=== PATIENT | male | born 1970 | race Asian ===

== ENCOUNTER 2016-11-06 18:16 | Emergency (ER) | payer OTHER ==
[~2016-11-06] VITALS: Ht 165.1 cm; Wt 72.1 kg
[~2016-11-06 18:16] MED LIST: FLOMAX(MONOGRA0.4 MG PO; MOTRIN 800MG T800 MG PO; PERCOCET 325 MG1 TA2 PO
[2016-11-06 20:25] LABS: ABSOLUTE BASOPHIL COUNT 0 /CUMM (0.0-0.2); ABSOLUTE EOSINOPHIL COUNT 0.2 /CUMM (0.0-0.7); ABSOLUTE GRANULOCYTE CT 3.4 /CUMM (1.4-6.5); ABSOLUTE LYMPH COUNT 1.9 /CUMM (1.2-3.4); ABSOLUTE MONOCYTE COUNT 0.4 /CUMM (0.10-0.60); BASOPHIL % 0.4 % (0.0-2.0); EOSINOPHIL % 3.2 % (0-5); GRANULOCYTE % 58.4 % (42.2-75.2); HEMATOCRIT 48.9 % (42-52); MEAN CORPUSCULAR VOLUME 88.2 FL (80.0-94.0); PLATELET COUNT 346 /CUMM (130-400); RBC DISTRIBUTION WIDTH 12.8 % (11.5-14.5); RED BLOOD CELL CT 5.55 /CUMM (4.70-6.10); WHITE BLOOD CELL COUNT 5.9 /CUMM (4.8-10.8)
--- NOTE | 2016-11-06 21:50 | CT SCAN REPORT ---
EXAMINATION: CT ABDOMEN AND PELVIS WITHOUT CONTRAST CLINICAL INFORMATION: Right upper quadrant/flank pain. COMPARISON: CT from 03/25/2015. TECHNIQUE: Multidetector volumetric imaging was performed from the superior aspect of the liver through the pubic symphysis. Sagittal and coronal reformatted images were obtained on the technologist's workstation. DLP: 276 mGy-cm FINDINGS: LUNG BASES: The visualized lung bases are unremarkable. LIVER, GALLBLADDER, AND BILIARY TREE: The liver is normal in size, shape, and attenuation. No focal hepatic lesion or biliary ductal dilatation is present. The gallbladder is unremarkable with no evidence of radiopaque gallstones, gallbladder wall thickening, or obvious pericholecystic inflammatory changes. PANCREAS: Unremarkable. SPLEEN: Unremarkable. ADRENAL GLANDS: Unremarkable. KIDNEYS AND URETERS: The kidneys are normal in size, shape, and attenuation. No hydronephrosis, hydroureter, or calculi seen. Minimal bilateral perinephric stranding. BLADDER: Unremarkable. GASTROINTESTINAL TRACT: The stomach and small bowel appear unremarkable. No dilated loops of bowel or evidence of obstruction. The patient is likely status post appendectomy with surgical clips seen at the tip of the cecum. Minimal diverticulosis without evidence of diverticulitis. No free air or free fluid. ABDOMINAL WALL: No significant hernia is appreciated. LYMPH NODES: Normal. VASCULAR: Minimal atherosclerotic calcifications. Retroaortic left renal vein. PELVIC VISCERA: The prostate and seminal vesicles are unremarkable. OSSEOUS STRUCTURES: No acute or suspicious osseous abnormality. Mild degenerative changes in the spine. IMPRESSION: No significant abnormality.
[2016-11-06 22:05] VITALS: BP 136/87
--- NOTE | 2016-11-06 22:57 | ED GI/GU/ABDOMINAL COMPLAINT ---
History of Present Illness General Chief Complaint: Abdominal Pain/Flank Pain Stated Complaint: RUQ ABD PAIN SINCE 11/02 Source: patient, family, old records Exam Limitations: no limitations Vital Signs & Intake/Output Vital Signs & Intake/Output Vital Signs Date Time Temp Pulse Resp B/P Pulse O2 O2 Flow FiO2 Ox Delivery Rate 11/06 2208 Room Air 11/06 2204 97.1 84 18 136/87 97 Room Air 11/06 1845 97.6 87 18 154/100 98 Room Air ED Intake and Output 11/07 0000 11/06 1200 Intake Total Output Total Balance Patient 159 lb Weight Allergies Coded Allergies: NO KNOWN ALLERGIES (12/26/11) Reconcile Medications Hyoscyamine Sulfate (Levsin-Sl) 0.125 MG TAB.SUBL 1-2 TAB SL Q4P PRN abdominal pain OXYCODONE HCL/ACETAMINOPHEN (Percocet 5-325 MG Tablet) 325 MG/5 MG TAB 1-2 TAB PO Q4-6 PRN PRN PAIN Tamsulosin Hydrochloride (Flomax) 0.4 MG CAP.ER.24H 1 TAB PO DAILY KIDNEY STONE Tramadol HCl (Ultram) 50 MG TABLET 1-2 TAB PO Q6PRN PRN severe pain Yibuprofen (Motrin 800MG Tab) 800 MG TABLET 1 TAB PO Q8P PRN PAIN Triage Note: PT TO TRIAGE WITH C/O RUQ ABDOMINAL PAIN RADIATING TO R FLANK 11/21 SINCE THURSDAY. PT DENIES N/V/D, LAST BM TODAY WNL.PT DENIES CEST PAIN, URINARY S/S AFEBRILE, VSS. Triage Nurses Notes Reviewed? yes Onset: 4 days Duration: day(s):, constant, changing over time, continues in ED Timing: recent history Quality/Severity: aching, moderate Location: right upper quadrant Radiation: LLQ, RLQ Activities at Onset: none Prior Abdominal Problems: similar symptoms Past Sexual History: Unobtainable at this time Modifying Factors: Worsens With: movement, palpation. Associated Symptoms: abdominal pain HPI: 4 days prior to admission patient complains of right upper quadrant pain described as achy burning radiating to right lower quadrant left lower quadrant occurring intermittently worse with palpation and movement. Currently the pain is limited to the right upper quadrant. He denies fever chills nausea vomiting diarrhea chest pain cough shortness breath headache dysuria rash bleeding. Past History Travel History Traveled to [place] past 21 day No Medical History Any Pertinent Medical History? see below for history Neurological: migraine EENT: NONE Cardiovascular: hyperlipidemia Respiratory: NONE Gastrointestinal: diverticulitis, pancreatitis Hepatic: NONE Renal: nephrolithiasis Musculoskeletal: NONE Psychiatric: NONE Endocrine: diabetes, BORDERLINE Blood Disorders: NONE Cancer(s): NONE COURTROOM CLERK/Reproductive: NONE Surgical History Surgical History: APPY Psychosocial History Who do you live with Patient/Self Services at Home None What is your primary language Cypriot Tobacco Use: Never used Family History Hx Contributory? No Review of Systems Review of Systems Constitutional: Reports: no symptoms. EENTM: Reports: no symptoms. Respiratory: Reports: no symptoms. Cardiovascular: Reports: no symptoms. GI: Reports: see HPI, abdominal pain. Genitourinary: Reports: no symptoms. Musculoskeletal: Reports: no symptoms. Skin: Reports: no symptoms. Neurological/Psychological: Reports: no symptoms. Hematologic/Endocrine: Reports: no symptoms. Immunologic/Allergic: Reports: no symptoms. All Other Systems: Reviewed and Negative Physical Exam Physical Exam General Appearance: well developed/nourished, alert, awake, anxious, mild distress Head: atraumatic, normal appearance Eyes: Bilateral: normal appearance, PERRL, EOMI, normal inspection. Ears, Nose, Throat, Mouth: hearing grossly normal, moist mucous membrane Neck: normal inspection, supple, full range of motion, normal alignment Respiratory: normal breath sounds, chest non-tender, no respiratory distress, quiet respiration, lungs clear Cardiovascular: regular rate/rhythm, normal peripheral pulses, norml femoral pulses equa Peripheral Pulses: 4+ carotid (R), 4+ carotid (L) Gastrointestinal: normal bowel sounds, soft, no organomegaly, tenderness (mild RUQ no [place]) Male Genitals: normal genitalia Back: normal inspection, normal range of motion Extremities: normal range of motion, no ligament instability Neurologic/Psych: no motor/sensory deficits, awake, alert, oriented x 3, normal gait, normal mood/affect, [employer] II-XII nml as tested Skin: intact, normal color, warm/dry Core Measures ACS in differential dx? No Severe Sepsis Present: No Septic Shock Present: No Progress Differential Diagnosis: biliary colic, diverticulitis, gastritis, pancreatitis, ureterolithiasis Plan of Care: Orders Procedure Date/time Status URINALYSIS 11/06 1928 Complete LIPASE 11/06 1928 Complete COMPREHENSIVE METABOLIC PANEL 11/06 1928 Complete CBC WITHOUT DIFFERENTIAL 11/06 1928 Complete Laboratory Tests 11/06/162045: Urine Color YEL, Urine Clarity CLEAR, Urine pH 6.0, Ur Specific [place] 1.010, Urine Protein NEG, Urine Ketones NEG, Urine Nitrite NEG, Urine Bilirubin NEG, Urine Urobilinogen 0.2, Ur Leukocyte Esterase NEG, Ur Microscopic SEDIMENT EXAMINED, Urine RBC 1-3, Urine Hemoglobin SMALL H, Urine Glucose NEG 11/06/162009: Anion Gap 12, Estimated GFR > 60, BUN/Creatinine Ratio 18.2, Glucose 116 H, Calcium 10.7 H, Total Bilirubin 0.5, AST 24, ALT 38, Alkaline Phosphatase 52, Total Protein 8.2, Albumin 4.9, Globulin 3.3, Albumin/Globulin Ratio 1.5, Lipase 111, CBC w Diff NO MAN DIFF REQ, RBC 5.55, MCV 88.2, MCH 30.0, RDW 12.8, MPV 7.0 L, Gran % 58.4, Lymphocytes % 31.9, Monocytes % 6.1, Eosinophils % 3.2, Basophils % 0.4, Absolute Granulocytes 3.4, Absolute Lymphocytes 1.9, Absolute Monocytes 0.4, Absolute Eosinophils 0.2, Absolute Basophils 0, PUBS MCHC 34.0 Diagnostic Imaging: Viewed by Me: CT Scan. Discussed w/RAD: CT Scan. Radiology Impression: no acute abnormality Initial ED EKG: none Departure Departure Time of Disposition: 2255 Disposition: HOME OR SELF CARE Condition: Stable Clinical Impression Primary Impression: Right upper quadrant abdominal pain Referrals: JOSIAH ALONZO (PCP/Family) KASSANDRA OBREGON,JOSEMANUEL [place] Call for surgical evaluation Additional Instructions: Make arrangements for right upper quadrant ultrasound Departure Forms: Customer Survey General Discharge Information RELEASE- WORK Prescriptions: Current Visit Scripts Hyoscyamine Sulfate (Levsin-Sl) 1-2 TAB SL Q4P PRN abdominal pain #30 TAB Tramadol HCl (Ultram) 1-2 TAB PO Q6PRN PRN severe pain #30 TAB
[2016-11-06] MEDS ORDERED: LEVSIN-SL0.125 MG SL (23:09)
[2016-11-06] MEDS ORDERED: ULTRAM50 M1 PO (23:09)
== END 2016-11-06 23:17 ==
LOC: ERH 18:16
PROVIDERS: Emergency Medicine
DX: R10.11 Right upper quadrant pain (principal)
CPT/HCPCS: 74176; 81001; J1885